=== PATIENT | female | born 1955 | race Caucasian/White ===

== ENCOUNTER 2021-05-30 09:45 | Inpatient (IN) | payer OTHER ==
[~2021-05-30] VITALS: Ht 154.9 cm; Wt 49.9 kg
[~2021-05-30 09:45] MED LIST: DIOVAN160 M1; EVISTA60 MG; FLUCONAZOLE150 MG PO; SEPTRA DS TABLE1 TAB PO
[2021-05-30] MEDS ORDERED: COZAAR50 MG PO (13:13)
[2021-05-30] MEDS ORDERED: HYDRODIURIL12.5 MG PO (13:13)
[2021-05-30] MEDS ORDERED: SIMVASTA PO (13:13)
[2021-05-30] MEDS ORDERED: FOLIC A PO (13:14)
[2021-05-30] MEDS ORDERED: VITAMIN B PO (13:15)
[2021-05-30] MEDS ORDERED: VITAMIN D PO (13:15)
[2021-05-30] MEDS ORDERED: IRON236 MG (13:16)
[2021-06-07] MEDS ORDERED: PERCOCET 5-3251 EACH PO (17:16)
== END 2021-06-07 22:41 | disposition home or self-care (01) | DRG 330 ==
LOC: EDSTATUS 09:45 → ADM 09:45 → SURH 06-03 05:37 → O/R 06-03 05:37 → SURH 06-03 07:00
PROVIDERS: ADMIT Surgery; ATTEND Surgery
PROC: 07BB4ZZ Excision of Mesenteric Lymphatic, Percutaneous Endoscopic Approach (ICD-10-PCS; 2021-06-03)
PROC: 0DTF4ZZ Resection of Right Large Intestine, Percutaneous Endoscopic Approach (ICD-10-PCS; principal; 2021-06-03 07:00)
DX: D12.2 Benign neoplasm of ascending colon (principal); K62.5 Hemorrhage of anus and rectum; D12.0 Benign neoplasm of cecum; D12.3 Benign neoplasm of transverse colon; K57.30 Diverticulosis of large intestine without perforation or abscess without bleeding; D37.4 Neoplasm of uncertain behavior of colon; N73.6 Female pelvic peritoneal adhesions (postinfective); R10.9 Unspecified abdominal pain; E78.5 Hyperlipidemia, unspecified; I10 Essential (primary) hypertension

== ENCOUNTER 2021-06-01 05:30 | Day surgery (SDC) | payer OTHER ==
[~2021-06-01 05:30] MED LIST changes: +COZAAR50 MG PO; +FOLIC A PO; +HYDRODIURIL12.5 MG PO; +IRON236 MG; +SIMVASTA PO; +VITAMIN B PO; +VITAMIN D PO
== END 2021-06-01 12:40 | disposition home or self-care (01) ==
LOC: AMB-ENDOS 05:30
PROVIDERS: ATTEND Surgery
DX: D12.3 Benign neoplasm of transverse colon (principal); D12.4 Benign neoplasm of descending colon; D12.5 Benign neoplasm of sigmoid colon; Z20.822 Contact with and (suspected) exposure to COVID-19